=== PATIENT | female | born 1960 | race African-American/Black ===

== ENCOUNTER 2020-03-01 06:24 | Outpatient (CLI) | payer OTHER ==
[2020-03-02 11:58] LABS: SARS-CoV-2 MS2 Positive; SARS-CoV-2 N Gene Negative; SARS-CoV-2 S Gene Negative; SARS-CoV-2 by NAA Not Detected (NotDetected); SARS-CoV-2 orf1ab Negative
== END 2020-03-01 06:25 | disposition home or self-care (01) ==
LOC: LABBT 06:24
PROVIDERS: ATTEND Ophthalmology Retina Specialist
DX: H54.7 Unspecified visual loss (principal); Z20.828 Contact with and (suspected) exposure to other viral communicable diseases
CPT/HCPCS: 87635; U0003

== ENCOUNTER 2020-03-05 08:01 | Day surgery (SDC) | payer OTHER ==
[2020-03-04 11:21] VITALS: BMI 33.5
[~2020-03-05 08:01] MED LIST: EPINEPHrine 0.3 MG in Ophthalmic Irrigation Solution 500 ML IRR SCH; Fentanyl 100 MCG/2 ML VIAL ONE; Midazolam HCl 2 mg/2 ml Vial ONE; PROPOFOL 20 ML ONE
[2020-03-05] MEDS ORDERED: Phenylephrine 2.5% Ophth Soln 5 ML BOT ONE (08:34)
[2020-03-05] MEDS ORDERED: Cyclopentolate 1% Opth Drop 2 ML BOT ONE (08:34)
[2020-03-05] MEDS ORDERED: Acetaminophen 500 MG TAB ONE (11:40)
--- NOTE | 2020-03-05 12:10 | OP ---
DATE OF PROCEDURE: 03/05/2020 PRINCIPAL PREOPERATIVE DIAGNOSIS: Macular hole, right eye. POSTOPERATIVE DIAGNOSIS: Macular hole, right eye. PROCEDURES PERFORMED: 1. 25-gauge pars plana vitrectomy, right eye. 2. Internal limiting membrane peel, right eye. 3. 15% SF6 fill, right eye. ESTIMATED BLOOD LOSS: None. SPECIMENS REMOVED: None. COMPLICATIONS: None. ANESTHESIA: MAC with sub-Tenon's block. DESCRIPTION OF PROCEDURE: The patient was identified in the preoperative holding area, where the correct eye being the right eye was marked for surgery. The patient was taken to the operating room, where MAC anesthesia was induced. The right eye was prepped and draped in the usual sterile ophthalmic fashion for surgery. A wire-clip lid speculum was placed. An inferonasal conjunctival peritomy was fashioned with Tia scissors for administration of sub-Tenon's block. The block consisted of 1:1 ratio of 4% lidocaine and 0.75% Marcaine. A total of 5 mL was administered. A standard 25-gauge pars plana vitrectomy platform was fashioned with trocars placed approximately 4 mm from the limbus. The infusion was noted to be within the vitreous cavity prior to being turned on to an infusion pressure of 30 mmHg. The light pipe and microvitrector were introduced in the eye under visualization of the BIOM viewing system. A careful core and peripheral shave vitrectomy were performed. Following vitrectomy, the ICG was inserted in the eye to stain the internal limiting membrane. Using the Wily ILM forceps, the internal limiting membrane was subsequently peeled in a circumferential fashion about the fovea. The peel extended approximately 2 disc diameters in radius circumferentially. Following peeling, the microvitrector was reintroduced in the eye, removing residual vitreous debris. A 360-degree scleral depressed exam of periphery revealed no defects. The cannulas were sequentially removed and all sclerotomies were noted to be gas tight. Subconjunctival Ancef and Kenalog were injected. The wire-clip lid speculum was removed followed by application of TobraDex ophthalmic ointment and a light patch and shield. The patient tolerated the procedure well and was taken to outpatient recovery area in good condition. Job ID: [id number]
[2020-03-05] MEDS ORDERED: Lidocaine 1% PF 5 ML VIAL ONE (12:13)
[2020-03-05] MEDS ORDERED: Triamcinolone 40 MG/ML VIAL ONE (12:13)
[2020-03-05] MEDS ORDERED: Maxitrol 0.1% Opth Oint 3.5 GM TUBE ONE (12:13)
[2020-03-05] MEDS ORDERED: Indocyanine Green 25 MG/10 ML VIAL ONE (12:13)
[2020-03-05] MEDS ORDERED: CEFAZOLIN 1 GM VIAL ONE (12:13)
[2020-03-05] MEDS ORDERED: Bupivacaine PF 0.75% SDV 10 ML ONE (12:13)
[2020-03-05] MEDS ORDERED: Lidocaine 4% PF 5 ML AMP ONE (12:13)
== END 2020-03-05 12:30 | disposition home or self-care (01) ==
LOC: SDC 08:01
PROVIDERS: ATTEND Ophthalmology Retina Specialist
PROC: 08T43ZZ Resection of Right Vitreous, Percutaneous Approach (ICD-10-PCS; principal; 2020-03-05)
PROC: 08NF3ZZ Release Left Retina, Percutaneous Approach (ICD-10-PCS; principal; 2020-03-05)
DX: H35.341 Macular cyst, hole, or pseudohole, right eye (principal); I10 Essential (primary) hypertension; E78.5 Hyperlipidemia, unspecified; Z79.899 Other long term (current) drug therapy
CPT/HCPCS: 67025; J0171; J0690; J2001; J2250; J2704; J3010; J3301; J3490

== ENCOUNTER 2020-11-01 10:58 | Outpatient (CLI) | payer OTHER | END 2020-11-01 10:59 | disposition home or self-care (01) | LOC: BICMAMMO 10:58 | PROVIDERS: ATTEND Family Medicine | DX: Z12.31 Encounter for screening mammogram for malignant neoplasm of breast (principal); Z80.3 Family history of malignant neoplasm of breast | CPT/HCPCS: 77063; 77067 ==

== ENCOUNTER 2022-01-09 12:38 | Outpatient (CLI) | payer OTHER | END 2022-01-09 12:39 | disposition home or self-care (01) | LOC: BICMAMMO 12:38 | PROVIDERS: ATTEND Family Medicine | DX: Z12.31 Encounter for screening mammogram for malignant neoplasm of breast (principal); Z80.3 Family history of malignant neoplasm of breast | CPT/HCPCS: 77063; 77067 ==